=== PATIENT | male | born 1995 | race Caucasian/White ===

== ENCOUNTER 2018-09-27 11:55 | Observation (INO) | payer OTHER ==
[~2018-09-27] VITALS: Ht 193 cm; Wt 108.4 kg
[~2018-09-27 11:55] MED LIST: AMOXIL500 MG OR; DAYQUIL; EAR DROPS OT; NYQUIL OR; TYLENOL500 MG OR; ULTRAM50 MG OR
--- NOTE | 2018-09-27 11:55 | NUR ---
PATIENT ARRIVES TO ED VIA EMS. EMS GAVE 100 MCG OF FENTANYL IV PRIOR TO ARRIVAL.
--- NOTE | 2018-09-27 12:00 | NUR ---
PT STATES HE DOES NOT HAVE A LEFT KIDNEY, WAS BORN WITHOUT ONE.
[2018-09-27 12:25] LABS: HEMATOCRIT 41.6 % (39.0-50.0); HEMOGLOBIN 14.4 g/dl (14.0-18.0); IMMATURE GRANULOCYTES 0.4 % (0.0-5.0); MEAN CORPUSCULAR HGB 30.1 pG CALC (26.0-32.0); MEAN CORPUSCULAR HGB CONC 34.6 g/L CALC (32.0-36.0); NEUT# 4.01 thou/uL (1.82-7.42); RED BLOOD COUNT 4.78 mill/uL (4.70-6.10); RED CELL DISTRI WIDTH 12.8 % (11.5-15.5)
--- NOTE | 2018-09-27 12:44 | NUR ---
STRAIGHT CATHED PT FOR URINE WITH APPROX 10CC OF BLOODY LOOKING URINE OUTPUT
--- NOTE | 2018-09-27 13:01 | NUR ---
PT STATES PAIN IS TOLERABLE AT THIS TIME, PLAING ON CELLPHONE.
[2018-09-27 13:05] LABS: URINE BILIRUBIN - DIPSTICK NEGATIVE (NEGATIVE); URINE BLOOD DIPSTICK LARGE (NEGATIVE); URINE GLUCOSE - DIPSTICK NEGATIVE (NEGATIVE); URINE KETONE TRACE mg/dL (NEGATIVE); URINE LEUK ESTERASE NEGATIVE (NEGATIVE); URINE NITRITE - DIPSTICK NEGATIVE (Negative); URINE PH 5.5 (4.5-8.0); URINE PROTEIN - DIPSTICK 100 mg/dL (NEG-TRACE); URINE SPECIFIC GRAVITY >=1.030; URINE UROBILINOGEN - DIPSTICK 0.2 E.U./dL (0.2)
[2018-09-27 13:06] LABS: URINE COLOR RED; URINE RBC TNTC RBC/hpf (0-5); URINE SQUAMOUS EPITHELIAL CELL FEW EPI/hpf (0-FEW)
[2018-09-27 13:10] LABS: BARBITURATES NEGATIVE (NEGATIVE); COCAINE NEGATIVE (NEGATIVE); METHADONE NEGATIVE (NEGATIVE); OXCYCODONE NEGATIVE (NEGATIVE); TETRAHYDROCANNABIONOL NEGATIVE (NEGATIVE); TRICYLIC ANTIDEPRESSANTS NEGATIVE (NEGATIVE)
[2018-09-27 13:15] LABS: ALBUMIN 4.5 g/dL (3.2-5.0); ALKALINE PHOSPHATASE 97 u/l (38-126); ANION GAP 17 (6-22 (CALC)); BILIRUBIN, TOTAL 0.9 mg/dL (0.0-1.4); BUN 14 mg/dL (9-20); BUN/CREATININE RATIO 13 (12-20 (CALC)); CARBON DIOXIDE 18 mmol/l (22-30); CHLORIDE 108 mmol/l (95-108); CREATININE 1.1 mg/dL (0.7-1.3); GFR > 60 ML/MIN (>=60 (CALC)); GFR FOR AFR.AMER. > 60 ML/MIN (>=60 (CALC)); POTASSIUM 3.8 mmol/l (3.5-5.1); SGOT/AST 31 u/l (17-59); SODIUM 140 mmol/l (137-146); TOTAL PROTEIN 7.1 g/dL (6.3-8.2)
--- NOTE | 2018-09-27 14:28 | NUR ---
PT DENIES TAKING ANY MEDICATIONS ON AN EVERYDAY BASIS.
--- NOTE | 2018-09-27 15:08 | NUR ---
PT AWARE OF ADMISSION, DR. BURNS SPEAKING WITH DR. CHILEL ABOUT PLACING STENT POSSIBLY TONIGHT.
--- NOTE | 2018-09-27 16:27 | NUR ---
REPORT GIVEN TO MED SURG FOR CONTINUATION OF CARE.
--- NOTE | 2018-09-27 16:35 | NUR ---
[place] [facility] [place] [facility] [place]. PT AMBULATED FROM TO BED W/ STEADY GAIT. VS DONE. PT A/O X4. SPEECH IS CLEAR. PERRLA. RESP EVEN AND UNLABORED. LUNG SOUNDS CLEAR. BOWEL SOUNDS ACTIVE X4. STRONG RADIAL AND PEDAL PULSES. #20 LFA EMS SITE SL. FLUSHED AND PATENT. SITE APPEARS HEALTHY. SKIN INTACT. PT DENIES ANY PAIN OR NEEDS. POC DISCUSSED. SAFETY PRECAUTIONS IN PLACE. CALL LIGHT IN REACH. SEIZURE PRECAUTIONS. FAMILY AT BEDSIDE, WELL SERVICE DOG. WILL CONTINUE TO MONITOR.
[2018-09-27 16:47] VITALS: BP 141/78
--- NOTE | 2018-09-27 19:00 | NUR ---
RECEIVED REPORT FROM NURSE OLIVER PT AWAKE, NO DISCOMFORTS NOTED AT THIS TIME, FAMILY IN ROOM, CALL LIGHT AT REACH.
[2018-09-27 19:13] VITALS: BP 134/85
--- NOTE | 2018-09-27 20:00 | NUR ---
PATIENT IN BED, INSTRUCTED THAT HE MAY EAT, FLUIDS GIVEN, ORDER FOR NPO AFTER 7AM BREAKFAST, PATIENT HAS AN ONGOING IV ON LEFT FOREARM NORMAL SALINE @100CC/HR. INFUSING WELL, LAST BM 09/26, NO DISCOMFORTS NOTED AT THIS TIME,CALL LIGHT AT REACH
[2018-09-28] VITALS (9 sets, daily range): BP systolic 128–152; BP diastolic 60–96
--- NOTE | 2018-09-28 01:39 | NUR ---
PATIENT RESTING IN BED, DENIES PAIN OR DISCOMFORT AT THIS TIME, CURRENTLY WATCHING TV, EVEN UNLABORED BREATHING, WITH AN ONGOING IV NORMAL SALINE ON LFA INFUSING WELL CALL LIGHT AT REACH
--- NOTE | 2018-09-28 04:30 | NUR ---
PATIENT WAS C/O PAIN ON STABBING PAIN ON FLANK AREA EXTENDING TO ABDOMEN PS 10/10, GRIMACING AND GUARDING NOTED, CALLED DR. VENEGAS WITH ORDERS MADE FAX TO PHARMACY AWAITING TO BE VERIFIED.
--- NOTE | 2018-09-28 06:10 | NUR ---
PATIENT STATED PAIN RELIEF FROM MORPHINE PS 09/13. CALLED DIETARY FOR AN EARLY BREAKFAST.
--- NOTE | 2018-09-28 06:45 | NUR ---
REPORT RECEIVED FROM NIGHT NURSE; PT LAYING IN BED, AWAKE, ALREADY ATE BREAKFAST; AWARE OF NPO STATUS; CALL VALVERDE IN REACH.
--- NOTE | 2018-09-28 08:09 | NUR ---
ASSESSMENT COMPLETED; SUPINE IN BED; A/O X3; RESP EVEN AND UNLABORED ON ROOM AIR; SIDE RAILS PADDED FOR SEIZURE PRECAUTION; IVF NS INFUSING @100CC/HR; SITE APPEARS HEALTHY; PT AWARE OF POSSIBLE SURGERY TODAY, REMAIN NPO, VERBALIZE UNDERSTANDING; VOIDED 800CC CLEAR, CAYETANO URINE, STRAIN, NO STONES NOTED; CALL VALVERDE IN REACH; SAFETY PRECAUTION REINFORCE; WILL CONTINUE TO MONITOR.
--- NOTE | 2018-09-28 11:36 | NUR ---
DR BARRY AT BEDSIDE TO DISCUSS POC.
--- NOTE | 2018-09-28 12:15 | NUR ---
PT SITTING UP IN BED LOOKING ON HIS PHONE; RESP EVEN AND UNLABOERD; C/O OF FLANK PAIN 01/13, MEDICATED PER EMAR; REMAIN NPO; IVF INFUSING WITHOUT DIFFICULTY; SITE APPEARS HEALTHY; CALL VALVERDE IN REACH;.
--- NOTE | 2018-09-28 14:55 | NUR ---
PT SITTING UP IN CHAIR VISITING WITH FAMILIES; IVF INFUSHING WITHOUT DIFFICULTY; NO S/S OF DISTRESS NOTED; VOICE NO COMPLAIN.
--- NOTE | 2018-09-28 15:33 | NUR ---
JOSE FRANCISCO FROM OR CALLED STATED THEY WERE UNAWARE OF POSSIBLE SURGERY TODAY; REQ TO SPEAK WITH GLORIA.
--- NOTE | 2018-09-28 15:43 | NUR ---
DARYA INFUSHING WELL; MEDICAL OFFICE TECHNICIAN INFORM PT OF POSSIBLE SURGERY LATER TODAY INSTEAD OF 4PM PREVIOUSLY TOLD; PT UPSET; APOLOGIZE; FAMILY MEMBER AT BEDSIDE;
--- NOTE | 2018-09-28 16:52 | NUR ---
PT GOING TO OR VIA STRETCHER ACCOMPANIED BY OR STAFF IN STABLE DIET;
--- NOTE | 2018-09-28 20:16 | NUR ---
RECEIVED REPORT FROM NURSE BRADY PT TRANSPORTED VIA BED, AT 2011 S/P CYSTOSCIOPY, STENT PLACEMENT, PATIENT URINATED SOON HE GOT TO ROOM, BLOODY, BP 158/112, WILL CONTINUE TO MONITOR,
--- NOTE | 2018-09-28 21:10 | NUR ---
PATIENT ALERT X3 ABLE TO MAKE NEEDS KNOWN, S/P CYSTOSCOPY, STENT PLACEMENT STONE EXTRACTION, C/O PENILE PAIN WHEN URINATING, AND BLOOD TINGED URINE, DR. CORTÉS DISCUSSED TO PT THE IT IS COMMON POST CYSTOSCOPY, FAMILY IN ROOM, PATIENT AND FAMILY DECIDED FOR PATIENT TO STAY FOR TONIGHT, POST OP ORDERS TO RESUME REGULAR DIET, AND FOLLOW UP WITH UROLOGIST AFTER 1 WEEK,
--- NOTE | 2018-09-28 22:00 | NUR ---
PATIENT INFORMED THAT HE MAY HAVE REGULAR DIET, FAMILY IN ROOM, CONTINUOUS ON V/S MONITORING. CALL LIGHT AT REACH
--- NOTE | 2018-09-28 23:10 | NUR ---
PATIENT STILL HAS EMS SITE ON LEFT HAND, INFUSING WELL, REFUSED TO CHANGE IV SITE POSSIBLE DISCHARGE TOMORROW.
--- NOTE | 2018-09-29 | NUR ---
PATIENT CURRENTLY RESTING IN BED, WITH EYES CLOSED NO DISCOMFORTS NOTED AT THIS TIME, CALL LIGHT WITHIN REACH
[2018-09-29 04:00] VITALS: BP 115/70
[2018-09-29 05:24] LABS: ALKALINE PHOSPHATASE 68 u/l (38-126); BILIRUBIN, TOTAL 0.4 mg/dL (0.0-1.4); BUN 10 mg/dL (9-20); BUN/CREATININE RATIO 10 (12-20 (CALC)); CHLORIDE 108 mmol/l (95-108); GFR > 60 ML/MIN (>=60 (CALC)); GFR FOR AFR.AMER. > 60 ML/MIN (>=60 (CALC)); MAGNESIUM 1.7 mg/dL (1.6-2.3); POTASSIUM 3.6 mmol/l (3.5-5.1); SGOT/AST 21 u/l (17-59); SODIUM 141 mmol/l (137-146)
[2018-09-29 05:39] LABS: ANION GAP 11 (6-22 (CALC)); CARBON DIOXIDE 26 mmol/l (22-30); TOTAL PROTEIN 5.5 g/dL (6.3-8.2)
[2018-09-29 05:40] LABS: ALBUMIN 3.3 g/dL (3.2-5.0)
--- NOTE | 2018-09-29 05:44 | NUR ---
PATIENT APPEARS TO BE SLEEPING IN BED, NO DISCOMFORTS NOTED AT THIS TIME CALL LIGHT WITHIN REACH
[2018-09-29 06:07] LABS: HEMATOCRIT 36.4 % (39.0-50.0); IMMATURE GRANULOCYTES 0.4 % (0.0-5.0); MEAN CELL VOLUME 91.5 fL CALC (80.0-100.0); MEAN CORPUSCULAR HGB 30.2 pG CALC (26.0-32.0); NEUT# 4.63 thou/uL (1.82-7.42); RED BLOOD COUNT 3.98 mill/uL (4.70-6.10); RED CELL DISTRI WIDTH 12.8 % (11.5-15.5)
[2018-09-29 08:26] VITALS: BP 130/84
--- NOTE | 2018-09-29 08:26 | NUR ---
PT A/O X4. SPEECH IS CLEAR. RESP EVEN AND UNLABORED. LUNG SOUNDS CLEAR. BOWEL SOUNDS ACTIVE X4. STRONG RADIAL AND PEDAL PULSES. #2O LH EMS IV NS @100. SITE APPEARS HEALTHY. SKIN INTACT. PT DENIES ANY PAIN. READY TO GO HOME. POC DISCUSSED. SAFETY PRECAUTIONS IN PLACE. CALL LIGHT IN REACH. WILL CONTINUE TO MONITOR.
--- NOTE | 2018-09-29 12:00 | NUR ---
PT RESTING IN BED. NO C/O PAIN OR NEEDS. CALL LIGHT IN REACH. WILL CONTINUE TO MONITOR.
--- NOTE | 2018-09-29 14:15 | NUR ---
D/C INSTRUCTIONS DISCUSSED W/ PT. PT STATES UNDERSTANDING. IV REMOVED. CATHETER INTACT. PT DRESSED READY TO AMBULATE DOWNSTAIRS
--- NOTE | 2018-09-29 14:21 | NUR ---
Discharge instructions given. Patient verbalizes understanding of same. Discharged in stable condition via Ambulatory to Home with family. All belongings sent with pt.
== END 2018-09-29 14:19 | disposition home or self-care (01) | DRG 660 ==
LOC: ED 11:55 → ED-I 14:53 → ED 15:20 → MS2 15:21
PROVIDERS: Emergency Medicine; Internal Medicine Nephrology; ADMIT Internal Medicine; ATTEND Internal Medicine
PROC: 0TC68ZZ Extirpation of Matter from Right Ureter, Via Natural or Artificial Opening Endoscopic (ICD-10-PCS; principal; 2018-09-28)
PROC: 0T768DZ Dilation of Right Ureter with Intraluminal Device, Via Natural or Artificial Opening Endoscopic (ICD-10-PCS; 2018-09-28)
PROC: BT1DZZZ Fluoroscopy of Right Kidney, Ureter and Bladder (ICD-10-PCS; 2018-09-28)
DX: N13.2 Hydronephrosis with renal and ureteral calculous obstruction (principal); Q60.0 Renal agenesis, unilateral; G40.909 Epilepsy, unspecified, not intractable, without status epilepticus
CPT/HCPCS: C1769; G0378; Q9967

== ENCOUNTER 2018-10-14 11:07 | Day surgery (SDC) | payer OTHER ==
[~2018-10-14] VITALS: Ht 193 cm; Wt 108.9 kg
[2018-10-14] MEDS ORDERED: TYLENOL325 M2 PO (11:20)
[2018-10-14] MEDS ORDERED: IBUPROFEN200 MG PO (11:21)
[2018-10-14 15:00] VITALS: BP 122/69
== END 2018-10-14 15:30 | disposition home or self-care (01) | DRG 699 ==
LOC: ORM 11:07
PROVIDERS: ATTEND Urology
PROC: 0TP98DZ Removal of Intraluminal Device from Ureter, Via Natural or Artificial Opening Endoscopic (ICD-10-PCS; principal; 2018-10-14)
DX: Z46.6 Encounter for fitting and adjustment of urinary device (principal); Q60.0 Renal agenesis, unilateral; G40.909 Epilepsy, unspecified, not intractable, without status epilepticus

== ENCOUNTER 2019-01-27 11:37 | Emergency (ER) | payer SELFPAY ==
[~2019-01-27] VITALS: Ht 193 cm; Wt 120.0 kg
[~2019-01-27 11:37] MED LIST changes: +IBUPROFEN200 MG PO; +TYLENOL325 M2 PO
[2019-01-27] MEDS ORDERED: VOLTAREN - GENE75 MG PO (12:57)
[2019-01-27 13:00] VITALS: BP 158/95
== END 2019-01-27 13:05 | disposition home or self-care (01) | DRG 563 ==
LOC: ED 11:37
DX: S39.012A Strain of muscle, fascia and tendon of lower back, initial encounter (principal); F17.200 Nicotine dependence, unspecified, uncomplicated; X58.XXXA Exposure to other specified factors, initial encounter

== ENCOUNTER 2019-01-30 14:52 | Emergency (ER) | payer SELFPAY ==
[~2019-01-30] VITALS: Ht 193 cm; Wt 109.1 kg
[~2019-01-30 14:52] MED LIST changes: +VOLTAREN - GENE75 MG PO
[2019-01-30 15:44] LABS: HEMATOCRIT 38.4 % (39.0-50.0); HEMOGLOBIN 13.1 g/dl (14.0-18.0); IMMATURE GRANULOCYTES 0.5 % (0.0-5.0); MEAN CELL VOLUME 88.9 fL CALC (80.0-100.0); MEAN CORPUSCULAR HGB 30.3 pG CALC (26.0-32.0); MEAN CORPUSCULAR HGB CONC 34.1 g/L CALC (32.0-36.0); NEUT# 4.67 thou/uL (1.82-7.42); RED BLOOD COUNT 4.32 mill/uL (4.70-6.10); RED CELL DISTRI WIDTH 12.3 % (11.5-15.5)
[2019-01-30 16:03] LABS: ALBUMIN 4.3 g/dL (3.2-5.0); ALKALINE PHOSPHATASE 98 u/l (38-126); ANION GAP 13 (6-22 (CALC)); BILIRUBIN, TOTAL 0.6 mg/dL (0.0-1.4); BUN 12 mg/dL (9-20); BUN/CREATININE RATIO 12 (12-20 (CALC)); CARBON DIOXIDE 24 mmol/l (22-30); CHLORIDE 108 mmol/l (95-108); GFR > 60 ML/MIN (>=60 (CALC)); GFR FOR AFR.AMER. > 60 ML/MIN (>=60 (CALC)); LIPASE 110 u/l (23-300); POTASSIUM 4.2 mmol/l (3.5-5.1); SGOT/AST 24 u/l (17-59); SODIUM 141 mmol/l (137-146); TOTAL PROTEIN 6.8 g/dL (6.3-8.2)
[2019-01-30 16:10] LABS: URINE BILIRUBIN - DIPSTICK NEGATIVE (NEGATIVE); URINE BLOOD DIPSTICK NEGATIVE (NEGATIVE); URINE COLOR YELLOW; URINE GLUCOSE - DIPSTICK NEGATIVE (NEGATIVE); URINE KETONE NEGATIVE (NEGATIVE); URINE LEUK ESTERASE NEGATIVE (NEGATIVE); URINE NITRITE - DIPSTICK NEGATIVE (Negative); URINE PH 7.5 (4.5-8.0); URINE PROTEIN - DIPSTICK NEGATIVE (NEG-TRACE); URINE SPECIFIC GRAVITY 1.015
[2019-01-30] MEDS ORDERED: ONDANSETRON4 MG PO (17:31)
[2019-01-30 17:49] VITALS: BP 137/88
== END 2019-01-30 17:59 | disposition home or self-care (01) | DRG 392 ==
LOC: ED 14:52
PROVIDERS: Family Medicine
DX: K52.9 Noninfective gastroenteritis and colitis, unspecified (principal); K92.0 Hematemesis; N40.0 Benign prostatic hyperplasia without lower urinary tract symptoms; F17.290 Nicotine dependence, other tobacco product, uncomplicated; F17.220 Nicotine dependence, chewing tobacco, uncomplicated
CPT/HCPCS: S0164

== ENCOUNTER 2019-02-12 10:26 | Emergency (ER) | payer BC ==
[~2019-02-12] VITALS: Ht 193 cm; Wt 113.6 kg
[~2019-02-12 10:26] MED LIST changes: +ONDANSETRON4 MG PO
[2019-02-12 11:10] LABS: HEMATOCRIT 41.1 % (39.0-50.0); HEMOGLOBIN 14.1 g/dl (14.0-18.0); IMMATURE GRANULOCYTES 0.4 % (0.0-5.0); MEAN CELL VOLUME 88.6 fL CALC (80.0-100.0); MEAN CORPUSCULAR HGB 30.4 pG CALC (26.0-32.0); MEAN CORPUSCULAR HGB CONC 34.3 g/L CALC (32.0-36.0); NEUT# 4.64 thou/uL (1.82-7.42); RED BLOOD COUNT 4.64 mill/uL (4.70-6.10); RED CELL DISTRI WIDTH 12.5 % (11.5-15.5)
[2019-02-12 11:35] LABS: ALBUMIN 4.8 g/dL (3.2-5.0); ALKALINE PHOSPHATASE 105 u/l (38-126); ANION GAP 14 (6-22 (CALC)); BILIRUBIN, TOTAL 0.7 mg/dL (0.0-1.4); BUN 13 mg/dL (9-20); BUN/CREATININE RATIO 13 (12-20 (CALC)); CARBON DIOXIDE 26 mmol/l (22-30); CHLORIDE 107 mmol/l (95-108); CPK 123 u/l (52-200); GFR > 60 ML/MIN (>=60 (CALC)); GFR FOR AFR.AMER. > 60 ML/MIN (>=60 (CALC)); POTASSIUM 4.2 mmol/l (3.5-5.1); SGOT/AST 29 u/l (17-59); SODIUM 142 mmol/l (137-146); TOTAL PROTEIN 7.8 g/dL (6.3-8.2)
[2019-02-12 12:28] LABS: URINE BILIRUBIN - DIPSTICK NEGATIVE (NEGATIVE); URINE COLOR YELLOW; URINE GLUCOSE - DIPSTICK NEGATIVE (NEGATIVE); URINE KETONE NEGATIVE (NEGATIVE); URINE LEUK ESTERASE NEGATIVE (Negative); URINE NITRITE - DIPSTICK NEGATIVE (Negative); URINE PROTEIN - DIPSTICK NEGATIVE (NEG-TRACE); URINE UROBILINOGEN - DIPSTICK 0.2 E.U./dL (0.2)
[2019-02-12 12:31] LABS: BARBITURATES NEGATIVE (NEGATIVE); COCAINE NEGATIVE (NEGATIVE); METHADONE NEGATIVE (NEGATIVE); OXCYCODONE NEGATIVE (NEGATIVE); TETRAHYDROCANNABIONOL NEGATIVE (NEGATIVE); TRICYLIC ANTIDEPRESSANTS NEGATIVE (NEGATIVE); URINE BLOOD DIPSTICK NEGATIVE (NEGATIVE); URINE CLARITY CLEAR
[2019-02-12] MEDS ORDERED: MEDDOSEPAK PO (12:38)
[2019-02-12] MEDS ORDERED: ULTRAM50 M1 PO (12:38)
[2019-02-12 13:01] VITALS: BP 146/86
== END 2019-02-12 13:01 | disposition home or self-care (01) | DRG 552 ==
LOC: ED 10:26
PROVIDERS: Emergency Medicine
DX: M54.5 Low back pain (principal); M79.604 Pain in right leg; F17.220 Nicotine dependence, chewing tobacco, uncomplicated; F17.290 Nicotine dependence, other tobacco product, uncomplicated

== ENCOUNTER 2020-06-29 05:00 | Day surgery (SDC) | payer OTHER ==
[~2020-06-29] VITALS: Ht 193 cm; Wt 108.0 kg
[~2020-06-29 05:00] MED LIST changes: +MEDDOSEPAK PO; +ULTRAM50 M1 PO
[2020-06-29 05:43] LABS: HEMATOCRIT 45.7 % (39.0-50.0); HEMOGLOBIN 15.1 g/dl (14.0-18.0); IMMATURE GRANULOCYTES 0.6 % (0.0-5.0); MEAN CELL VOLUME 89.3 fL CALC (80.0-100.0); MEAN CORPUSCULAR HGB 29.5 pG CALC (26.0-32.0); NEUT# 5.47 thou/uL (1.82-7.42); RED BLOOD COUNT 5.12 mill/uL (4.70-6.10); RED CELL DISTRI WIDTH 12.8 % (11.5-15.5)
[2020-06-29 05:51] LABS: URINE BILIRUBIN - DIPSTICK NEGATIVE (NEGATIVE); URINE BLOOD DIPSTICK TRACE-LYSED (NEGATIVE); URINE COLOR YELLOW; URINE GLUCOSE - DIPSTICK NEGATIVE (NEGATIVE); URINE KETONE NEGATIVE (NEGATIVE); URINE LEUK ESTERASE NEGATIVE (NEGATIVE); URINE NITRITE - DIPSTICK NEGATIVE (Negative); URINE PROTEIN - DIPSTICK NEGATIVE (NEG-TRACE); URINE SPECIFIC GRAVITY >=1.030; URINE UROBILINOGEN - DIPSTICK 0.2 E.U./dL (0.2)
[2020-06-29 05:59] LABS: ALBUMIN 4.5 g/dL (3.2-5.0); ALKALINE PHOSPHATASE 93 u/l (38-126); AMYLASE 57 u/l (30-110); ANION GAP 11 (6-22 (CALC)); BILIRUBIN, TOTAL 0.9 mg/dL (0.0-1.4); BUN 14 mg/dL (9-20); BUN/CREATININE RATIO 12 (12-20 (CALC)); CHLORIDE 100 mmol/l (95-108); CREATININE 1.2 mg/dL (0.7-1.3); ETHYL ALCOHOL 0 mg/dl (0-30); GFR > 60 ML/MIN (>=60 (CALC)); GFR FOR AFR.AMER. > 60 ML/MIN (>=60 (CALC)); LIPASE 173 u/l (23-300); POTASSIUM 4.3 mmol/l (3.5-5.1); SGOT/AST 29 u/l (17-59); SODIUM 139 mmol/l (137-146); TOTAL PROTEIN 7.4 g/dL (6.3-8.2)
[2020-06-29 06:02] LABS: CARBON DIOXIDE 32 mmol/l (22-30)
[2020-06-29] MEDS ORDERED: PERCOCET 5/325M1 TAB PO ×2 (12:26→12:28)
[2020-06-29 13:34] VITALS: BP 95/51
== END 2020-06-29 14:20 | disposition home or self-care (01) | DRG 419 ==
LOC: ED 05:00 → ED-I 09:11 → ED 09:23 → ORM 09:24
PROVIDERS: ATTEND Surgery
PROC: 0FT44ZZ Resection of Gallbladder, Percutaneous Endoscopic Approach (ICD-10-PCS; principal; 2020-06-29)
DX: K80.12 Calculus of gallbladder with acute and chronic cholecystitis without obstruction (principal); G40.909 Epilepsy, unspecified, not intractable, without status epilepticus; F17.210 Nicotine dependence, cigarettes, uncomplicated; Z90.5 Acquired absence of kidney; Z20.828 Contact with and (suspected) exposure to other viral communicable diseases
CPT/HCPCS: J0131; J1610; J2710; Q9967

== ENCOUNTER 2020-09-19 09:51 | Emergency (ER) | payer SELFPAY ==
[~2020-09-19] VITALS: Ht 193 cm; Wt 113.6 kg
[~2020-09-19 09:51] MED LIST changes: +PERCOCET 5/325M1 TAB PO
[2020-09-19 10:32] LABS: HEMATOCRIT 44.1 % (39.0-50.0); IMMATURE GRANULOCYTES 0.6 % (0.0-5.0); MEAN CELL VOLUME 88.9 fL CALC (80.0-100.0); MEAN CORPUSCULAR HGB 30.2 pG CALC (26.0-32.0); NEUT# 4.92 thou/uL (1.82-7.42); RED BLOOD COUNT 4.96 mill/uL (4.70-6.10); RED CELL DISTRI WIDTH 12.7 % (11.5-15.5)
[2020-09-19 10:58] LABS: ALBUMIN 4.9 g/dL (3.2-5.0); ALKALINE PHOSPHATASE 91 u/l (38-126); ANION GAP 11 (6-22 (CALC)); BILIRUBIN, TOTAL 0.9 mg/dL (0.0-1.4); BUN 15 mg/dL (9-20); BUN/CREATININE RATIO 14 (12-20 (CALC)); CARBON DIOXIDE 28 mmol/l (22-30); CHLORIDE 102 mmol/l (95-108); CREATININE 1.1 mg/dL (0.7-1.3); ETHYL ALCOHOL 0 mg/dl (0-30); GFR > 60 ML/MIN (>=60 (CALC)); GFR FOR AFR.AMER. > 60 ML/MIN (>=60 (CALC)); LIPASE 103 u/l (23-300); POTASSIUM 4.1 mmol/l (3.5-5.1); SGOT/AST 41 u/l (17-59); SODIUM 137 mmol/l (137-146); TOTAL PROTEIN 8.1 g/dL (6.3-8.2)
[2020-09-19 11:13] LABS: URINE BILIRUBIN - DIPSTICK NEGATIVE (NEGATIVE); URINE BLOOD DIPSTICK TRACE-INTACT (NEGATIVE); URINE COLOR YELLOW; URINE GLUCOSE - DIPSTICK NEGATIVE (NEGATIVE); URINE KETONE NEGATIVE (NEGATIVE); URINE LEUK ESTERASE NEGATIVE (NEGATIVE); URINE NITRITE - DIPSTICK NEGATIVE (Negative); URINE PH 5.5 (4.5-8.0); URINE PROTEIN - DIPSTICK NEGATIVE (NEG-TRACE); URINE SPECIFIC GRAVITY 1.025
[2020-09-19 12:03] VITALS: BP 120/67
== END 2020-09-19 12:03 | disposition home or self-care (01) | DRG 101 ==
LOC: ED 09:51
DX: G40.909 Epilepsy, unspecified, not intractable, without status epilepticus (principal); F17.210 Nicotine dependence, cigarettes, uncomplicated; Z90.5 Acquired absence of kidney

== ENCOUNTER 2020-11-08 09:25 | Emergency (ER) | payer SELFPAY ==
[2020-11-08 10:26] LABS: HEMATOCRIT 43.1 % (39.0-50.0); HEMOGLOBIN 14.5 g/dl (14.0-18.0); IMMATURE GRANULOCYTES 0.6 % (0.0-5.0); MEAN CORPUSCULAR HGB 29.6 pG CALC (26.0-32.0); MEAN CORPUSCULAR HGB CONC 33.6 g/dL CAL (32.0-36.0); NEUT# 4.83 thou/uL (1.82-7.42); RED BLOOD COUNT 4.9 mill/uL (4.70-6.10); RED CELL DISTRI WIDTH 12.5 % (11.5-15.5)
[2020-11-08 10:48] LABS: ALBUMIN 4.8 g/dL (3.2-5.0); ALKALINE PHOSPHATASE 100 u/l (38-126); ANION GAP 10 (6-22 (CALC)); BILIRUBIN, TOTAL 0.9 mg/dL (0.0-1.4); BUN 9 mg/dL (9-20); BUN/CREATININE RATIO 9 (12-20 (CALC)); CARBON DIOXIDE 26 mmol/l (22-30); CHLORIDE 105 mmol/l (95-108); GFR > 60 ML/MIN (>=60 (CALC)); GFR FOR AFR.AMER. > 60 ML/MIN (>=60 (CALC)); POTASSIUM 4.1 mmol/l (3.5-5.1); SGOT/AST 29 u/l (17-59); SODIUM 137 mmol/l (137-146); TOTAL PROTEIN 7.8 g/dL (6.3-8.2)
[2020-11-08] MEDS ORDERED: MOTRIN800 MG PO (10:59)
[2020-11-08] MEDS ORDERED: KEFLEX500 MG PO (10:59)
[2020-11-08] MEDS ORDERED: SILVADENE1 % EX (10:59)
[2020-11-08 11:25] VITALS: BP 116/72
== END 2020-11-08 11:46 | disposition home or self-care (01) | DRG 605 ==
LOC: ED 09:25
DX: S90.512A Abrasion, left ankle, initial encounter (principal); L03.116 Cellulitis of left lower limb; G40.909 Epilepsy, unspecified, not intractable, without status epilepticus; F17.200 Nicotine dependence, unspecified, uncomplicated; W22.09XA Striking against other stationary object, initial encounter; Y93.H2 Activity, gardening and landscaping; Y92.007 Garden or yard of unspecified non-institutional (private) residence as the place of occurrence of the external cause; Z90.5 Acquired absence of kidney

== ENCOUNTER 2021-03-09 23:13 | Emergency (ER) | payer BC ==
[~2021-03-09] VITALS: Ht 193 cm; Wt 114.0 kg
[~2021-03-09 23:13] MED LIST changes: +KEFLEX500 MG PO; +MOTRIN800 MG PO; +SILVADENE1 % EX
[2021-03-10] MEDS ORDERED: ZPAK PO (02:43)
[2021-03-10 03:04] VITALS: BP 120/76
== END 2021-03-10 03:00 | disposition home or self-care (01) | DRG 179 ==
LOC: ED 23:13
DX: U07.1 COVID-19 (principal); G40.909 Epilepsy, unspecified, not intractable, without status epilepticus; F17.290 Nicotine dependence, other tobacco product, uncomplicated; Z90.5 Acquired absence of kidney

== ENCOUNTER 2022-09-22 07:49 | Emergency (ER) | payer BC ==
[~2022-09-22] VITALS: Ht 193 cm; Wt 116.3 kg
[~2022-09-22 07:49] MED LIST changes: +ZPAK PO
[2022-09-22 07:56] VITALS: BP 147/113
[2022-09-22 08:00] VITALS: BP 148/102
[2022-09-22 08:07] VITALS: BP 139/91
[2022-09-22 08:13] VITALS: BP 139/91
[2022-09-22] MEDS ORDERED: AMOXICILLIN500 M2 PO (08:14)
== END 2022-09-22 08:16 | disposition home or self-care (01) | DRG 159 ==
LOC: ED 07:49
DX: K08.89 Other specified disorders of teeth and supporting structures (principal); R51.9 Headache, unspecified; F17.210 Nicotine dependence, cigarettes, uncomplicated; G40.909 Epilepsy, unspecified, not intractable, without status epilepticus

== ENCOUNTER 2023-07-30 08:48 | Emergency (ER) | payer BC ==
[~2023-07-30] VITALS: Ht 193 cm; Wt 131.0 kg
[2023-07-30] VITALS (9 sets, daily range): BP systolic 121–144; BP diastolic 78–91
[~2023-07-30 08:48] MED LIST changes: +AMOXICILLIN500 M2 PO; +ZOFRAN4 MG/TAB PO
[2023-07-30] MEDS ORDERED: FLEXERIL5 M1 PO (10:35)
[2023-07-30] MEDS ORDERED: MOTRIN800 MG PO (10:35)
[2023-07-30] MEDS ORDERED: PERCOCET 5/325M1 TAB PO ×2 (10:36→10:39)
== END 2023-07-30 10:49 | disposition home or self-care (01) | DRG 563 ==
LOC: ED 08:48
DX: S46.812A Strain of other muscles, fascia and tendons at shoulder and upper arm level, left arm, initial encounter (principal); S46.312A Strain of muscle, fascia and tendon of triceps, left arm, initial encounter; S43.402A Unspecified sprain of left shoulder joint, initial encounter; G40.909 Epilepsy, unspecified, not intractable, without status epilepticus; F17.200 Nicotine dependence, unspecified, uncomplicated; X50.0XXA Overexertion from strenuous movement or load, initial encounter; Y93.89 Activity, other specified; Y92.89 Other specified places as the place of occurrence of the external cause; Y99.0 Civilian activity done for income or pay

== ENCOUNTER 2024-01-26 10:47 | Emergency (ER) | payer BC ==
[~2024-01-26] VITALS: Ht 193 cm; Wt 130.6 kg
[~2024-01-26 10:47] MED LIST changes: +FLEXERIL5 M1 PO
[2024-01-26 11:29] VITALS: BP 124/89
[2024-01-26 11:45] VITALS: BP 133/83
[2024-01-26] MEDS ORDERED: NAPROXEN500 MG PO (12:28)
[2024-01-26 13:00] VITALS: BP 133/83
== END 2024-01-26 13:08 | disposition home or self-care (01) | DRG 153 ==
LOC: ED 10:47
DX: J02.9 Acute pharyngitis, unspecified (principal); R52 Pain, unspecified; R10.84 Generalized abdominal pain; G40.909 Epilepsy, unspecified, not intractable, without status epilepticus; F17.220 Nicotine dependence, chewing tobacco, uncomplicated; F17.290 Nicotine dependence, other tobacco product, uncomplicated; Z90.5 Acquired absence of kidney; Z87.442 Personal history of urinary calculi; Z20.822 Contact with and (suspected) exposure to COVID-19

== ENCOUNTER 2024-05-28 10:56 | Emergency (ER) | payer BC ==
[~2024-05-28] VITALS: Ht 193 cm; Wt 131.5 kg
[~2024-05-28 10:56] MED LIST changes: +NAPROXEN500 MG PO
[2024-05-28] MEDS ORDERED: ONDANSETRON 4 MG/TAB ODT SL ONE (12:40)
[2024-05-28] MEDS ORDERED: KETOROLAC TROMETHAMINE 30 MG/ML SDV IM ONE (12:40)
[2024-05-28 12:46] LABS: URINE BLOOD DIPSTICK Trace-lysed (NEGATIVE); URINE GLUCOSE - DIPSTICK Negative (NEGATIVE); URINE KETONE 80 mg/dL (NEGATIVE); URINE LEUK ESTERASE Negative (NEGATIVE); URINE NITRITE - DIPSTICK Negative (Negative); URINE PH 5.5 (4.5-8.0); URINE PROTEIN - DIPSTICK Negative (NEG-TRACE); URINE SPECIFIC GRAVITY >=1.030
[2024-05-28 12:49] LABS: URINE COLOR Yellow
[2024-05-28 12:50] VITALS: BP 134/85
[2024-05-28 13:00] VITALS: BP 120/82
[2024-05-28 13:15] VITALS: BP 134/83
[2024-05-28 13:30] VITALS: BP 110/81
[2024-05-28 14:05] VITALS: BP 110/81
== END 2024-05-28 14:06 | disposition home or self-care (01) | DRG 866 ==
LOC: ED 10:56
PROVIDERS: Nurse Practitioner
DX: B34.9 Viral infection, unspecified (principal); G40.909 Epilepsy, unspecified, not intractable, without status epilepticus; F17.200 Nicotine dependence, unspecified, uncomplicated; Z90.5 Acquired absence of kidney; Z20.822 Contact with and (suspected) exposure to COVID-19

== ENCOUNTER 2024-08-12 08:42 | Emergency (ER) | payer BC ==
[~2024-08-12] VITALS: Ht 193 cm; Wt 131.0 kg
[2024-08-12] MEDS ORDERED: KETOROLAC TROMETHAMINE 30 MG/ML SDV IM ONE (09:20)
[2024-08-12] MEDS ORDERED: FLEXERIL5 M1 PO (09:24)
[2024-08-12] MEDS ORDERED: MEDDOSEPAK PO (09:24)
[2024-08-12] MEDS ORDERED: NABUMETONE750 MG PO (09:24)
[2024-08-12] MEDS ORDERED: CYCLOBENZAPRINE HCL 5 MG TAB PO ONE (09:25)
[2024-08-12 09:43] VITALS: BP 126/84
== END 2024-08-12 09:44 | disposition home or self-care (01) | DRG 563 ==
LOC: ED 08:42
DX: S46.911A Strain of unspecified muscle, fascia and tendon at shoulder and upper arm level, right arm, initial encounter (principal); G40.909 Epilepsy, unspecified, not intractable, without status epilepticus; F17.290 Nicotine dependence, other tobacco product, uncomplicated; X58.XXXA Exposure to other specified factors, initial encounter
CPT/HCPCS: J1100

== ENCOUNTER 2024-08-31 12:37 | Emergency (ER) | payer BC ==
[~2024-08-31] VITALS: Ht 193 cm; Wt 113.6 kg
[2024-08-31] VITALS (7 sets, daily range): BP systolic 125–149; BP diastolic 84–97
[~2024-08-31 12:37] MED LIST changes: +NABUMETONE750 MG PO
[2024-08-31 14:39] LABS: BASO% 0.5 % (0-3); EOS% 1.8 % (0-8); HEMATOCRIT 41.8 % (39.0-50.0); IMMATURE GRANULOCYTES 0.4 % (0.0-5.0); LYMPH% 18.3 % (15-41); MEAN CELL VOLUME 92.9 fL CALC (80.0-100.0); MEAN CORPUSCULAR HGB 31.1 pG CALC (26.0-32.0); MEAN CORPUSCULAR HGB CONC 33.5 g/dL CAL (32.0-36.0); MONO% 6.3 % (2-13); NEUT# 6.08 thou/uL (1.82-7.42); NEUT% 72.7 % (42-76); RED BLOOD COUNT 4.5 mill/uL (4.70-6.10); RED CELL DISTRI WIDTH 12.4 % (11.5-15.5)
[2024-08-31 14:55] LABS: INTERNATIONAL NORMALIZED RATIO 0.9 RATIO (0.7-1.3)
[2024-08-31] MEDS ORDERED: ONDANSETRON HCl 4 MG/2 ML SDV IV ONE (14:55)
[2024-08-31] MEDS ORDERED: Pantoprazole Sodium 40 MG VIAL (Protonix) IV ONE (14:55)
[2024-08-31 14:56] LABS: ALBUMIN 4.9 g/dL (3.2-5.0); BILIRUBIN, TOTAL 0.9 mg/dL (0.2-1.3); CREATININE 0.9 mg/dL (0.7-1.3); POTASSIUM 4.4 mmol/l (3.5-5.1); PROTHROMBIN TIME 10.2 SECONDS (9.0-12.5); TOTAL PROTEIN 7.8 g/dL (6.3-8.2)
[2024-08-31 15:11] LABS: URINE BILIRUBIN - DIPSTICK Negative (NEGATIVE); URINE BLOOD DIPSTICK Negative (NEGATIVE); URINE GLUCOSE - DIPSTICK Negative (NEGATIVE); URINE KETONE Negative (NEGATIVE); URINE LEUK ESTERASE Negative (NEGATIVE); URINE NITRITE - DIPSTICK Negative (Negative); URINE PROTEIN - DIPSTICK Negative (NEG-TRACE); URINE UROBILINOGEN - DIPSTICK 0.2 E.U./dL (0.2)
[2024-08-31 15:15] LABS: URINE COLOR Yellow
[2024-08-31] MEDS ORDERED: PROTONIX40 M2 PO (16:26)
== END 2024-08-31 16:52 | disposition home or self-care (01) | DRG 392 ==
LOC: ED 12:37
PROVIDERS: Family Medicine; Nurse Practitioner
DX: R10.11 Right upper quadrant pain (principal); R10.31 Right lower quadrant pain; R11.2 Nausea with vomiting, unspecified; R19.7 Diarrhea, unspecified; G40.909 Epilepsy, unspecified, not intractable, without status epilepticus; F17.200 Nicotine dependence, unspecified, uncomplicated; Z90.5 Acquired absence of kidney
CPT/HCPCS: J2405; J2470; Q9967